=== PATIENT | male | born 1945 | race Caucasian/White ===

== ENCOUNTER 2021-01-26 10:17 | Inpatient (IN) | payer OTHER ==
[~2021-01-26] VITALS: Ht 167.6 cm; Wt 59.1 kg
[~2021-01-26 10:17] MED LIST: ALDACTONE 25MG25 M1 PO; ASPIRIN 81M81 MG/TA2 PO; COZAAR 25MG25 MG/TAB PO; DOXYCYCLINE HY100 MG PO; LANOX0.0625 PO; NEURONTIN300 MG/CAP PO; PRAVACHOL10 MG PO; PREDNISONE20 MG PO; PROAIR HFA0.09 MG/AC IH; TOPROL XL 25MG25 MG PO
[2021-01-26 11:09] LABS: BASO # 0.1 (0.0-0.2); BASO % 1.3 % (0.0-2.0); EOS # 0.5 (0.0-0.7); EOS % 7.9 % (0-4.0); GRAN # 3.9 (1.4-6.5); GRAN % 66.4 % (42.2-75.2); HEMATOCRIT 40.5 % (42.0-52.0); HEMOGLOBIN 12.8 g/dl (13.5-18.0); LYMPH # 0.8 (1.2-3.4); LYMPH % 13.8 % (20.0-51.0); MEAN CELL VOLUME 95 fl (80.0-100.0); MEAN CORPUSCULAR HEMOGLOBIN 30 pg (27.0-31.0); MEAN CORPUSCULAR HGB CONC 32 g/dl (33.0-37.0); MONO # 0.6 (0.1-0.6); MONO % 10.4 % (1.7-9.3); PLATELET COUNT 185 K/mm3 (130-400); RED BLOOD COUNT 4.27 M/mm3 (4.20-5.60); REDCELL DISTRIBUTION WIDTH-CV 12.9 % (11.5-14.5)
[2021-01-26 11:19] LABS: CALCIUM 8.6 mg/dL (8.4-10.2); CREATININE, serum 0.88 (0.66-1.25)
[2021-01-26 11:34] LABS: TROPONIN-I 0.04 ng/mL (0.000-0.035)
[2021-01-26 17:49] VITALS: BP 106/75; PULSE 84; TEMP 97.9
--- NOTE | 2021-01-26 19:12 | NUR ---
Pt admitted to floor from ER this afternoon, initial assessments completed.
[2021-01-26 19:51] VITALS: BP 92/55; PULSE 99; TEMP 97.4
--- NOTE | 2021-01-26 20:00 | NUR ---
Patient assessed at this time. Alert and oriented x 4, and able to make needs known. Denies having pain and discomfort at this time. Peripheral INT to right AC. Denies having SOB and dyspnea at this time. LS CTA in upper lobes, diminished in lower. Respirations even and unlabored. HRR. Telemetry in place. Capillary refill less than 3 seconds. Non-tenting skin turgor. BSAx4. Abdomen soft and non-tender. No edema. Voices no questions, needs, or concerns at this time. Resting in bed with call light within reach.
[2021-01-27 00:18] VITALS: BP 104/63; PULSE 100; TEMP 97.6
[2021-01-27 04:53] VITALS: BP 112/73; PULSE 62; TEMP 97.4
--- NOTE | 2021-01-27 05:36 | NUR ---
Patient has denied having pain and discomfort this shift. Has been resting in bed, and independent in room. Stated that IV steroids have helped, and he is feeling much better. Denies SOB and dyspnea. Resting in bed with call light within reach. Encouraged to call with any questions, needs, or concerns, and voiced understanding.
[2021-01-27 06:25] LABS: HEMATOCRIT 37.1 % (42.0-52.0); HEMOGLOBIN 12.2 g/dl (13.5-18.0); MEAN CELL VOLUME 95 fl (80.0-100.0); MEAN CORPUSCULAR HEMOGLOBIN 31 pg (27.0-31.0); MEAN CORPUSCULAR HGB CONC 33 g/dl (33.0-37.0); MEAN PLATELET VOLUME 10.1 fl (7.4-10.4); PLATELET COUNT 186 K/mm3 (130-400); RED BLOOD COUNT 3.91 M/mm3 (4.20-5.60)
[2021-01-27 06:38] LABS: CALCIUM 8.6 mg/dL (8.4-10.2); CREATININE, serum 0.87 (0.66-1.25)
[2021-01-27 07:30] LABS: BAND 2 % (0-10); LYMPHOCYTE 10 % (20.0-51.0); NEUTROPHILS 88 % (42.0-75.2); OVALOCYTES 1+; PLATELET ESTIMATE NORMAL (NORMAL)
[2021-01-27 07:31] LABS: TEAR DROP CELLS 1+
[2021-01-27 08:23] VITALS: BP 99/42; PULSE 52; TEMP 97.4
--- NOTE | 2021-01-27 09:00 | NUR ---
Pt awake and alert upon entry, no C/O pain or SOA. Shift assessment complete, left Pt call light in reach, bed in lowest position.
[2021-01-27] MEDS ORDERED: PREDNISONE20 MG PO (10:44)
[2021-01-27] MEDS ORDERED: RT ADVAIR 228 DISKUS IH (10:46)
[2021-01-27 11:28] VITALS: BP 94/57; PULSE 93; TEMP 97.4
--- NOTE | 2021-01-27 12:00 | NUR ---
SW met with patient to complete intake. Patient provides that he lives at home with his Tenisha [phone]. He also states that another POC is his son Edward in [place] [phone]. Patient provides that he does not utilize any DME at this time and is independent with ADL's. Patient provides that his PCP is Dr. Mckee, pharmacy is [facility], and is able to afford his medications. Maryt states that his is his DPOA-HC and that this document can be sent or brought up to the facility. Patient provides that his plan is to go home today or tomorrow if the DR says he is able to. Patient stats he has no concerns with doing so. SW will continue to follow.
--- NOTE | 2021-01-27 12:00 | NUR ---
Pt discharged to home, discussed discharge information with Pt. Escorted Pt to entrance, Pt left in own transportation.
[2021-01-28] MEDS ORDERED: PRILOSEC 20MG20 MG PO (09:39)
[2021-02-27] MEDS ORDERED: LASIX 20MG TABL20 MG PO (14:45)
[2021-02-28] MEDS ORDERED: PREDNISONE10 MG PO (10:55)
[2021-02-28] MEDS ORDERED: DOXYCYCLINE 10100 MG PO (12:36)
[2021-02-28] MEDS ORDERED: RT SPIRIVA18 MCG IH (12:38)
[2021-07-01] MEDS ORDERED: CORDARONE200 MG/TAB PO (04:12)
[2021-07-07] MEDS ORDERED: LASIX 40MG TABL40 MG PO (10:34)
== END 2021-01-27 12:00 | disposition home or self-care (01) | DRG 191 ==
LOC: COL.ER 10:17 → MEDICAL 13:44 → COL.ER 13:44 → MEDICAL 13:44
PROVIDERS: Nurse Practitioner Family; ADMIT Student in an Organized Health Care Education/Training Program
DX: J44.1 Chronic obstructive pulmonary disease with (acute) exacerbation (principal); I24.8 Other forms of acute ischemic heart disease; G89.29 Other chronic pain; M54.9 Dorsalgia, unspecified; I48.91 Unspecified atrial fibrillation; Z85.118 Personal history of other malignant neoplasm of bronchus and lung; Z86.73 Personal history of transient ischemic attack (TIA), and cerebral infarction without residual deficits; Z79.82 Long term (current) use of aspirin; Z87.891 Personal history of nicotine dependence; Z92.21 Personal history of antineoplastic chemotherapy; Z95.0 Presence of cardiac pacemaker; Z85.828 Personal history of other malignant neoplasm of skin
CPT/HCPCS: 99222-AI; 99239; J1650; J2920; J2930

== ENCOUNTER 2021-01-28 06:12 | Emergency (ER) | payer OTHER ==
[~2021-01-28] VITALS: Ht 167.6 cm; Wt 59.1 kg
[~2021-01-28 06:12] MED LIST changes: +RT ADVAIR 228 DISKUS IH
[2021-01-28 06:42] LABS: BASO % 0.1 % (0.0-2.0); EOS % 0.1 % (0-4.0); GRAN # 14.5 (1.4-6.5); GRAN % 89.3 % (42.2-75.2); HEMATOCRIT 37.9 % (42.0-52.0); HEMOGLOBIN 12.5 g/dl (13.5-18.0); LYMPH # 0.7 (1.2-3.4); LYMPH % 4.3 % (20.0-51.0); MEAN CELL VOLUME 94 fl (80.0-100.0); MEAN CORPUSCULAR HEMOGLOBIN 31 pg (27.0-31.0); MEAN CORPUSCULAR HGB CONC 33 g/dl (33.0-37.0); MEAN PLATELET VOLUME 10.3 fl (7.4-10.4); MONO # 0.9 (0.1-0.6); MONO % 5.8 % (1.7-9.3); PLATELET COUNT 208 K/mm3 (130-400); RED BLOOD COUNT 4.03 M/mm3 (4.20-5.60); REDCELL DISTRIBUTION WIDTH-CV 13.2 % (11.5-14.5)
[2021-01-28 06:49] LABS: PROTHROMBIN TIME 11.6 SECONDS (9.7-12.8)
[2021-01-28 06:57] LABS: ALBUMIN 3.9 gm/dL (3.5-5.0); BILIRUBIN,TOTAL 0.2 mg/dL (0.0-1.0); CALCIUM 8.9 mg/dL (8.4-10.2); CREATININE, serum 1.14 (0.66-1.25); POTASSIUM 4.7 mmol/L (3.4-5.0); TOTAL PROTEIN 6.7 gm/dL (6.4-8.2)
[2021-01-28 07:15] LABS: COLLECTION METHOD CLEAN CATCH
[2021-01-28 07:18] LABS: TROPONIN-I 0.037 ng/mL (0.000-0.035)
[2021-01-28 07:25] LABS: PH 6 (5-8); SQUAMOUS EPITHELIAL None Seen /hpf; URINE APPEARANCE Clear; URINE BACTERIA None Seen /hpf; URINE BILIRUBIN Negative (NEGATIVE); URINE BLOOD 2+ (NEGATIVE); URINE COLOR Yellow; URINE GLUCOSE Negative (NEGATIVE); URINE KETONE Negative (NEGATIVE); URINE LEUKOCYTE ESTERASE Negative (NEGATIVE); URINE NITRATE Negative (NEGATIVE); URINE PROTEIN(semi-quant) Negative (NEGATIVE)
[2021-01-28] MEDS ORDERED: PRILOSEC 20MG20 MG PO (09:39)
[2021-01-28 10:02] VITALS: BP 103/58; PULSE 82; TEMP 97.6
[2021-02-27] MEDS ORDERED: LASIX 20MG TABL20 MG PO (14:45)
[2021-02-28] MEDS ORDERED: PREDNISONE10 MG PO (10:55)
[2021-02-28] MEDS ORDERED: DOXYCYCLINE 10100 MG PO (12:36)
[2021-02-28] MEDS ORDERED: RT SPIRIVA18 MCG IH (12:38)
[2021-07-01] MEDS ORDERED: CORDARONE200 MG/TAB PO (04:12)
[2021-07-07] MEDS ORDERED: LASIX 40MG TABL40 MG PO (10:34)
== END 2021-01-28 10:13 | disposition home or self-care (01) ==
LOC: COL.ER 06:12
PROVIDERS: Emergency Medicine
DX: R07.2 Precordial pain (principal); I48.91 Unspecified atrial fibrillation; J44.9 Chronic obstructive pulmonary disease, unspecified; I10 Essential (primary) hypertension; E78.5 Hyperlipidemia, unspecified; G89.29 Other chronic pain; M54.5 Low back pain; Z95.0 Presence of cardiac pacemaker; Z86.73 Personal history of transient ischemic attack (TIA), and cerebral infarction without residual deficits; Z85.118 Personal history of other malignant neoplasm of bronchus and lung; Z79.52 Long term (current) use of systemic steroids; Z79.82 Long term (current) use of aspirin
CPT/HCPCS: J1940

== ENCOUNTER 2021-06-04 20:40 | Emergency (ER) | payer OTHER ==
[~2021-06-04] VITALS: Ht 167.6 cm; Wt 57.3 kg
[~2021-06-04 20:40] MED LIST changes: +DOXYCYCLINE 10100 MG PO; +LASIX 20MG TABL20 MG PO; +PREDNISONE10 MG PO; +PRILOSEC 20MG20 MG PO; +RT SPIRIVA18 MCG IH
[2021-06-04 22:15] VITALS: BP 103/77; PULSE 84; TEMP 98.1
[2021-07-01] MEDS ORDERED: CORDARONE200 MG/TAB PO (04:12)
[2021-07-07] MEDS ORDERED: LASIX 40MG TABL40 MG PO (10:34)
== END 2021-06-04 22:15 | disposition home or self-care (01) ==
LOC: COL.ER 20:40
DX: S46.211A Strain of muscle, fascia and tendon of other parts of biceps, right arm, initial encounter (principal); J44.9 Chronic obstructive pulmonary disease, unspecified; Z79.899 Other long term (current) drug therapy; Z79.52 Long term (current) use of systemic steroids; X50.9XXA Other and unspecified overexertion or strenuous movements or postures, initial encounter; Y93.54 Activity, bowling

== ENCOUNTER 2021-06-11 07:57 | Inpatient (IN) | payer OTHER ==
[~2021-06-11] VITALS: Ht 167.6 cm; Wt 67.3 kg
[2021-06-11 08:35] LABS: BASO # 0.1 (0.0-0.2); BASO % 0.9 % (0.0-2.0); EOS # 0.5 (0.0-0.7); GRAN # 6.7 (1.4-6.5); HEMATOCRIT 38.9 % (42.0-52.0); HEMOGLOBIN 12.4 g/dl (13.5-18.0); LYMPH # 1.1 (1.2-3.4); LYMPH % 11.8 % (20.0-51.0); MEAN CELL VOLUME 94 fl (80.0-100.0); MEAN CORPUSCULAR HEMOGLOBIN 30 pg (27.0-31.0); MEAN CORPUSCULAR HGB CONC 32 g/dl (33.0-37.0); MEAN PLATELET VOLUME 9.5 fl (7.4-10.4); MONO # 0.7 (0.1-0.6); MONO % 8.1 % (1.7-9.3); PLATELET COUNT 245 K/mm3 (130-400); RED BLOOD COUNT 4.13 M/mm3 (4.20-5.60); REDCELL DISTRIBUTION WIDTH-CV 13.4 % (11.5-14.5)
[2021-06-11 09:03] LABS: ALBUMIN 3.3 gm/dL (3.4-4.8); BILIRUBIN,TOTAL 0.7 mg/dL (0.2-1.2); CALCIUM 8.7 mg/dL (8.4-10.2); CREATININE, serum 0.86 mg/dL (0.72-1.25); POTASSIUM 4.3 mmol/L (3.5-4.5)
[2021-06-11 09:13] LABS: TROPONIN-I 0.083 ng/mL (0.00-0.033)
[2021-06-11 10:33] LABS: COLLECTION METHOD CLEAN CATCH
[2021-06-11 10:46] LABS: MUCOUS Present /lpf; PH 7 (5-8); SQUAMOUS EPITHELIAL None Seen /hpf; URINE APPEARANCE Clear; URINE BACTERIA None Seen /hpf; URINE BILIRUBIN Negative (NEGATIVE); URINE BLOOD 2+ (NEGATIVE); URINE COLOR Yellow; URINE GLUCOSE Negative (NEGATIVE); URINE KETONE Trace (NEGATIVE); URINE LEUKOCYTE ESTERASE Negative (NEGATIVE); URINE NITRATE Negative (NEGATIVE); URINE PROTEIN(semi-quant) Negative (NEGATIVE)
[2021-06-11 15:32] VITALS: BP 104/71; PULSE 85; TEMP 97.6
[2021-06-11 16:00] LABS: PARTIAL THROMBOPLASTIN TIME 27.4 SECONDS (26.0-37.0)
--- NOTE | 2021-06-11 16:11 | NUR ---
Patient arrived to the floor from ED. Currently has no complaints. Heparin drip was initiated per orders/protocol.
[2021-06-11 16:36] VITALS: BP 109/68; PULSE 89; TEMP 98.1
[2021-06-11 20:19] VITALS: BP 103/70; PULSE 82; TEMP 97.4
--- NOTE | 2021-06-11 20:30 | NUR ---
Initial shift assessment done- Denies pain, denies chest pain, denies SOB, has o2 at 2L/nc, Tele on- paced, heparing drip at 800u/hr {8cc/hr} , next hepxa at 2200. NPo after MN for heart cath in AM. Up as tolerated in room, steady on feet.
--- NOTE | 2021-06-11 23:00 | NUR ---
Hepxa at 0.45,, Heparin drip decreased to 700unit/hr {7cc/hr} per protocol,, next hepxa at 0500.
[2021-06-12] VITALS (14 sets, daily range): BP systolic 89–97; BP diastolic 47–69; PULSE 74–92; TEMP 97.3–98.5
--- NOTE | 2021-06-12 06:02 | NUR ---
Quiet night, heparin drip at 7cc/hr, lab here to draw morning labs and hepxa. Patient has been NPO since MO for 0900 heart cath.tele on. No chest pain
--- NOTE | 2021-06-12 07:00 | NUR ---
Report received from MAYUR Blank. PT in bed resitng, denies needs, anticipating heart cath at 0900. Will continue to monitor.
[2021-06-12 07:08] LABS: HEMATOCRIT 37.3 % (42.0-52.0); HEMOGLOBIN 12.3 g/dl (13.5-18.0); MEAN CELL VOLUME 93 fl (80.0-100.0); MEAN CORPUSCULAR HEMOGLOBIN 31 pg (27.0-31.0); MEAN CORPUSCULAR HGB CONC 33 g/dl (33.0-37.0); MEAN PLATELET VOLUME 10.1 fl (7.4-10.4); PLATELET COUNT 268 K/mm3 (130-400); RED BLOOD COUNT 4.02 M/mm3 (4.20-5.60); REDCELL DISTRIBUTION WIDTH-CV 13.2 % (11.5-14.5)
[2021-06-12 07:17] LABS: INR 1.3 (0.8-3.0)
[2021-06-12 07:20] LABS: PARTIAL THROMBOPLASTIN TIME 47.4 SECONDS (26.0-37.0)
[2021-06-12 07:30] LABS: CALCIUM 8.5 mg/dL (8.4-10.2); CREATININE, serum 0.77 mg/dL (0.72-1.25); POTASSIUM 4.1 mmol/L (3.5-4.5)
--- NOTE | 2021-06-12 08:25 | NUR ---
Assessment charted. Student nurse notified me of low BP. Called April and received orders for bolus, provided. In room they completed echo with contrast. Resting in bed, alert and oriented but not sure of date, otherwise cooperative. No skin issues. IVF to RFA. Denies pain. WIll continue to monitor.
--- NOTE | 2021-06-12 09:25 | NUR ---
Initial visit; Patient thanked Concrete Pointer for looking in on him and offering God's blessings and keeping him in her prayers ans he is having a surgical procedure today.
--- NOTE | 2021-06-12 11:45 | NUR ---
Report received from Davey in floating labor gang supervisor, pt arrived back to floor at this time, awake and alert, provided coffee, water and ordered lunch. Pt resting in bed, denies needs, RW access site is CDI with band in place. Will continue to monitor.
--- NOTE | 2021-06-12 14:21 | NUR ---
Cargo Trimmer met with patient to discuss discharge planning. Patient lives in [place] with his , Tenisha (ph#[phone]) and goes to the [facility] for primary care and medications. Patient's primary care physician is Dr. Maldonado. Patient has oxygen at home that he uses as needed and uses no other DME. Patient reports independence with ADLS and plans to return home upon discharge. Patient advised he does not have Advance Directives at this time and was not interested in completing DPOA-HC at this time. Discharge Plan: Home
--- NOTE | 2021-06-12 18:22 | NUR ---
Pt doing well, resting in bed, taking PO well. BPs remain soft, denies needs, will give report to ericka atwood who will resume care.
--- NOTE | 2021-06-12 22:28 | NUR ---
INCREASED HEPARIN GTT BY 150 U/HR PER PROTOCOL AT 2150.
--- NOTE | 2021-06-12 22:56 | NUR ---
PT ALERT AND ORIENTED IN ROOM. PT ABLE TO AMBULATE INDEPENDENTLY. PT RIGHT RADIAL SITE SOFT, NO HEMATOMA NOTED. PULSES 2+ IN ALL EXTREMITIES. PT EXPRESSES PAIN INBETWEEN SHOULDER BLADES 2-3/10. STATES PAIN HAS BEEN THERE PRIOR TO COMING TO HOSPITAL. PT CAP REFILL <3S. PT BLOOD PRESSURES SOFT, PT REPORTS NEAR BASELINE. PT CALL LIGHT WITHIN REACH, NO OTHER NEEDS EXPRESSED AT THIS TIME.
--- NOTE | 2021-06-12 23:20 | NUR ---
NOTIFIED ACE LUO OF PT REPORTING PAIN INBETWEEN SHOULDERS AND BACK DURING 1999 PAIN ASSESSMENT THAT HAS SINCE RESOLVED. PT VITAL SIGNS REMAINED AT BASELINE, NO SIGNS OF ACUTE DISTRESS NOTED. PT STATES, "IT MIGHT HAVE BEEN INDIGESTION FROM DINNER, I PUT A LOT OF SPICE ON IT." RECEIVED INSTRUCTION TO CONTINUE TO MONITOR, NO INTERVENTION AT THIS TIME.
[2021-06-13] VITALS (11 sets, daily range): BP systolic 92–117; BP diastolic 39–87; PULSE 70–96; TEMP 97.3–98.3
[2021-06-13 04:07] LABS: BASO % 0.1 % (0.0-2.0); GRAN # 10.1 K/mm3 (1.4-6.5); GRAN % 89.7 % (42.2-75.2); HEMOGLOBIN 11.7 g/dl (13.5-18.0); LYMPH # 0.6 K/mm3 (1.2-3.4); LYMPH % 5.3 % (20.0-51.0); MEAN CELL VOLUME 92 fl (80.0-100.0); MEAN CORPUSCULAR HEMOGLOBIN 30 pg (27.0-31.0); MEAN CORPUSCULAR HGB CONC 33 g/dl (33.0-37.0); MEAN PLATELET VOLUME 9.9 fl (7.4-10.4); MONO # 0.5 K/mm3 (0.1-0.6); MONO % 4.5 % (1.7-9.3); PLATELET COUNT 254 K/mm3 (130-400); RED BLOOD COUNT 3.91 M/mm3 (4.20-5.60); REDCELL DISTRIBUTION WIDTH-CV 13.6 % (11.5-14.5)
[2021-06-13 04:17] LABS: HEMATOCRIT 35.8 % (42.0-52.0)
[2021-06-13 04:31] LABS: CALCIUM 8.4 mg/dL (8.4-10.2); CREATININE, serum 1.03 mg/dL (0.72-1.25); POTASSIUM 4.3 mmol/L (3.5-4.5)
--- NOTE | 2021-06-13 05:00 | NUR ---
PT CONTINUING ON PLAN OF CARE. PT RADIAL SITE CONTINUES TO BE CLEAN, DRY, INTACT. NO HEMATOMA NOTED. PULSES 2+ IN ALL EXTREMITIES. PT DENIED PAIN AT 0400 VITAL SIGN COLLECTION. PT BLOOD PRESSURE REMAINED SOFT THIS SHIFT. PT ABLE TO AMBULATE INDEPENDENTLY IN ROOM. HEPARIN GTT MANAGED PER PROTOCOL. PT FREE FROM INJURY THIS SHIFT.
--- NOTE | 2021-06-13 07:31 | NUR ---
Patient resting in bed upon entry to room. Heparin gtt running as ordered. Patient denies any pain, discomfort, SOA, or needs at this time. Call light in reach. Student will be assissting in cares this shift.
--- NOTE | 2021-06-13 08:06 | NUR ---
Shift assessment preformed. Student to give medications under supervision of liscensed nurse. Inspiratory and Expiratory wheezes in lung dumas. +1 Edema in BLE. Radial heart cath site is soft, no hematoma present, bandaide in place. Patient denies any pain, discomfort, SOA, or further needs at this time. Call light in reach. VSS. Patient A&O. Hepxa will be drawn at 1030.
--- NOTE | 2021-06-13 12:32 | NUR ---
pack worker supervisor met with the patient post rounds. Patient is currently paying for home O2 privately, but unsure of the company he uses. Patient will complete a exercise oximetry test before dc to determine O2 needs. Informed the patient that if he should need home O2, we will set it [facility] through the [facility].
--- NOTE | 2021-06-13 14:32 | NUR ---
Primary nurse was assisted with [phone] patient care by [employer] student Helga Hansen and [employer] instructor Roberta Jorgensen MSN, RN
--- NOTE | 2021-06-13 19:43 | NUR ---
Patient has had an ok day. Heparin gtt DC'd as ordered. New IV site started on patient's left forearm. Patient still has SOA upon exertion, but is currently not requiring any O2. Patient denies any pain, discomfort, or further needs at this time. Call light in reach.
--- NOTE | 2021-06-13 22:20 | NUR ---
PT RESTING IN BED. EVENING MEDICATIONS GIVEN. SHIFT ASSESSMENT COMPLETED. DENIES ANY PAIN OR ANY NEEDS. R RADIAL CATHETERIZATION SITE HAS NO SWELLING OR BLEEDING, DRESSING IS C/D/I. WILL CONTINUE TO MONITOR.
--- NOTE | 2021-06-14 03:01 | NUR ---
TELEMETRY CALLED AND INFORMED THIS RN THAT PT HAD JUST HAD A SEVEN BEAT RUN OF V-TACH AT THIS TIME. CHECKED ON PT AND HE AROUSED FROM SLEEP EASILY AND SEEMS STABLE. VITAL SIGNS STABLE. WILL CONTINUE TO MONITOR.
[2021-06-14 03:03] VITALS: BP 94/66; PULSE 73; TEMP 97.3
[2021-06-14 03:29] LABS: BASO % 0.1 % (0.0-2.0); GRAN # 7.5 K/mm3 (1.4-6.5); GRAN % 83.3 % (42.2-75.2); HEMOGLOBIN 11.9 g/dl (13.5-18.0); LYMPH # 0.9 K/mm3 (1.2-3.4); LYMPH % 10.5 % (20.0-51.0); MEAN CELL VOLUME 93 fl (80.0-100.0); MEAN CORPUSCULAR HEMOGLOBIN 30 pg (27.0-31.0); MEAN CORPUSCULAR HGB CONC 33 g/dl (33.0-37.0); MEAN PLATELET VOLUME 9.8 fl (7.4-10.4); MONO # 0.5 K/mm3 (0.1-0.6); MONO % 5.7 % (1.7-9.3); PLATELET COUNT 230 K/mm3 (130-400); RED BLOOD COUNT 3.93 M/mm3 (4.20-5.60); REDCELL DISTRIBUTION WIDTH-CV 13.4 % (11.5-14.5)
[2021-06-14 03:31] LABS: HEMATOCRIT 36.4 % (42.0-52.0)
[2021-06-14 04:03] LABS: CALCIUM 8.3 mg/dL (8.4-10.2); CREATININE, serum 0.96 mg/dL (0.72-1.25); MAGNESIUM 2.3 mg/dL (1.6-2.6); POTASSIUM 4.1 mmol/L (3.5-4.5)
--- NOTE | 2021-06-14 05:49 | NUR ---
PT RESTING IN BED THIS MORNING. DENIES ANY NEEDS. CONTINUING TO MONITOR.
[2021-06-14 07:02] VITALS: BP 92/67; PULSE 77; TEMP 97.5
--- NOTE | 2021-06-14 08:23 | NUR ---
SPO2 @ REST 93% WALKED ON ROOM AIR APPROX 200 FT AND BACK TO ROOM SPO2 86% PT FELT WINDED. RT TX GIVEN WITH PT FEELING BETTERL PT HAS [place]AND AT HOME AND USES IT PRN. DENISE EXERCISE VERY WELL W/O COMPLAINT. LEFT ON RA POST RT TX.
[2021-06-14 11:34] VITALS: BP 101/63; PULSE 82; TEMP 97.5
--- NOTE | 2021-06-14 14:47 | NUR ---
Primary nurse was assisted with [phone] patient care by [employer] student Helga Hansen and [employer] instructor Roberta Jorgensen MSN, RN
[2021-06-14 15:31] VITALS: BP 94/62; PULSE 77; TEMP 97.6
--- NOTE | 2021-06-14 15:56 | NUR ---
Transport Driver faxed clinical information and exercise oximetry to Dr. Maldonado's office at the [facility]. Per exercise oximetry, patient needs two liters only with ambulation. CHRISTOPHER spoke with RN at Dr. Maldonado's office who advised that per their policies and after review of patient's referral, he would not qualify to have VA cover his oxygen. RN reviewed previous visit notes and advised this has been discussed with patient previously. Patient only has Medicare PT A, which will not cover any DME needs. CHRISTOPHER met with patient to provide this update. Patient states he will continue to use his portable concentrator that he paid privately for. CHRISTOPHER updated Hospitalist on the above information. Discharge Plan: Home with private pay oxygen
--- NOTE | 2021-06-14 20:27 | NUR ---
PT RESTING IN BED. EVENING MEDICATIONS GIVEN. SHIFT ASSESSMENT COMPLETED. PT DENIES ANY NEEDS AT THIS TIME. WILL CONTINUE TO MONITOR.
[2021-06-14 20:29] VITALS: BP 103/65; PULSE 76; TEMP 97.5
[2021-06-15 01:05] VITALS: BP 102/64; PULSE 71; TEMP 97.7
--- NOTE | 2021-06-15 01:41 | NUR ---
TELEMETRY CALLED TO INFORM THIS RN THAT PT HAD A 5 BEAT RUN OF V-TACH AT THIS TIME. PT SLEEPING AND AROUSES EASILY. ACE LUO CALLED. WILL CONTINUE TO MONITOR.
[2021-06-15 05:28] VITALS: BP 96/66; PULSE 72; TEMP 97.4
--- NOTE | 2021-06-15 05:57 | NUR ---
PT HAD UNEVENTFUL NIGHT. STATES HES EAGER TO GO HOME. DENIES ANY NEEDS.
--- NOTE | 2021-06-15 07:00 | NUR ---
Report with MAYUR Mathew. Pt sitting up in bed, awake and alert, expressing his wish to discharge home today. No further needs reported. Call light in reach.
[2021-06-15 07:07] LABS: EOS % 0.5 % (0-4.0); GRAN # 6.2 K/mm3 (1.4-6.5); GRAN % 77.8 % (42.2-75.2); HEMATOCRIT 41.6 % (42.0-52.0); HEMOGLOBIN 13.1 g/dl (13.5-18.0); LYMPH # 1.1 K/mm3 (1.2-3.4); LYMPH % 13.8 % (20.0-51.0); MEAN CELL VOLUME 95 fl (80.0-100.0); MEAN CORPUSCULAR HEMOGLOBIN 30 pg (27.0-31.0); MEAN CORPUSCULAR HGB CONC 32 g/dl (33.0-37.0); MEAN PLATELET VOLUME 9.8 fl (7.4-10.4); MONO # 0.6 K/mm3 (0.1-0.6); MONO % 7.5 % (1.7-9.3); PLATELET COUNT 247 K/mm3 (130-400); RED BLOOD COUNT 4.36 M/mm3 (4.20-5.60); REDCELL DISTRIBUTION WIDTH-CV 13.4 % (11.5-14.5)
--- NOTE | 2021-06-15 07:09 | NUR ---
NOTIFIED DR. CANTU OF 5 BEAT RUN OF V-TACH AT 0130, PER INSTRUCTIONS FROM ACE LUO.
--- NOTE | 2021-06-15 07:29 | NUR ---
Assessment complete. Pt sitting up in bed, A&O x 4, denies pain at this time. Saline lock IV to left forearm without s/s of complications. Physical assessment otherwise unremarkable. No further needs reported. Call light in reach.
[2021-06-15 07:37] LABS: CALCIUM 9.1 mg/dL (8.4-10.2); CREATININE, serum 1.1 mg/dL (0.72-1.25); POTASSIUM 4.3 mmol/L (3.5-4.5)
[2021-06-15 07:38] VITALS: BP 107/66; PULSE 74; TEMP 98.9
[2021-06-15] MEDS ORDERED: LASIX 20MG TABL20 MG PO (09:31)
[2021-06-15] MEDS ORDERED: TOPROL XL 25MG25 MG PO ×2 (09:31)
[2021-06-15] MEDS ORDERED: CORDARONE200 MG/TAB PO (09:31)
[2021-06-15] MEDS ORDERED: PREDNISONE20 MG PO (09:35)
--- NOTE | 2021-06-15 12:38 | NUR ---
Discharge instructions reviewed with pt regarding new medications and follow-up appointments. Questions invited and answered. Pt verbalizes understanding, discharged home, escorted out of facility via WC accompanied by WEBLOGIC DEVELOPER and pt's friend.
[2021-07-01] MEDS ORDERED: CORDARONE200 MG/TAB PO (04:12)
[2021-07-07] MEDS ORDERED: LASIX 40MG TABL40 MG PO (10:34)
== END 2021-06-15 12:50 | disposition home or self-care (01) | DRG 286 ==
LOC: COL.ER 07:57 → MEDICAL 13:19
PROVIDERS: Emergency Medicine; Nurse Practitioner Family; Physician Assistant; ADMIT Student in an Organized Health Care Education/Training Program
PROC: 4A023N7 Measurement of Cardiac Sampling and Pressure, Left Heart, Percutaneous Approach (ICD-10-PCS; principal; 2021-06-11)
PROC: B2111ZZ Fluoroscopy of Multiple Coronary Arteries using Low Osmolar Contrast (ICD-10-PCS; 2021-06-11)
DX: I11.0 Hypertensive heart disease with heart failure (principal); J96.21 Acute and chronic respiratory failure with hypoxia; I50.21 Acute systolic (congestive) heart failure; J44.1 Chronic obstructive pulmonary disease with (acute) exacerbation; I24.8 Other forms of acute ischemic heart disease; E44.0 Moderate protein-calorie malnutrition; I42.8 Other cardiomyopathies; I48.91 Unspecified atrial fibrillation; Z86.73 Personal history of transient ischemic attack (TIA), and cerebral infarction without residual deficits; G89.29 Other chronic pain; M54.9 Dorsalgia, unspecified; Z98.49 Cataract extraction status, unspecified eye; Z95.0 Presence of cardiac pacemaker; Z79.82 Long term (current) use of aspirin; Z87.891 Personal history of nicotine dependence; E78.5 Hyperlipidemia, unspecified; I95.9 Hypotension, unspecified; Z85.118 Personal history of other malignant neoplasm of bronchus and lung; Z68.20 Body mass index [BMI] 20.0-20.9, adult; Z20.822 Contact with and (suspected) exposure to COVID-19; Z90.2 Acquired absence of lung [part of]; Z92.3 Personal history of irradiation
CPT/HCPCS: 99223-AI; 99232-AI; 99233-AI; 99239; C8924; J0696; J1644; J2920; J3010; J7050; J7512; Q9957; Q9967

== ENCOUNTER → 2021-07-01 | Outpatient (CLI) | payer OTHER ==
[~2021-07-01] MED LIST changes: +ANTI-DIARRHEAL2 MG PO; +ATIVAN 1MG T1 MG/TAB PO; +ATROPINE SULFATE S1% SL; +CORDARONE200 MG/TAB PO; +LASIX 40MG TABL40 MG PO; +MELATIN 3 MG-11 TAB PO; +REFRESH TEARS 330 ML OP; +ROXANOL 20MG20 MG/ML PO; +SYNTHROID0.05 MG/TA PO; +TYLENOL 325MG325 MG PO; +ZOFRAN ODT4 MG PO
== END ==
LOC: ZCOL.LAB 01:37
DX: J47.9 Bronchiectasis, uncomplicated (principal)

== ENCOUNTER 2021-07-22 16:00 | Inpatient (IN) | payer OTHER, MEDICARE ==
[~2021-07-22] VITALS: Ht 15.2 cm; Wt 51.0 kg
[~2021-07-22 16:00] MED LIST changes: -ANTI-DIARRHEAL2 MG PO; -ATIVAN 1MG T1 MG/TAB PO; -ATROPINE SULFATE S1% SL; -MELATIN 3 MG-11 TAB PO; -REFRESH TEARS 330 ML OP; -ROXANOL 20MG20 MG/ML PO; -SYNTHROID0.05 MG/TA PO; -TYLENOL 325MG325 MG PO; -ZOFRAN ODT4 MG PO
[2021-07-22 16:30] LABS: HEMOGLOBIN 11.2 g/dl (13.5-18.0); MEAN CELL VOLUME 91 fl (80.0-100.0); MEAN CORPUSCULAR HEMOGLOBIN 30 pg (27.0-31.0); MEAN CORPUSCULAR HGB CONC 33 g/dl (33.0-37.0); MEAN PLATELET VOLUME 8.9 fl (7.4-10.4); PLATELET COUNT 179 K/mm3 (130-400); RED BLOOD COUNT 3.77 M/mm3 (4.20-5.60); REDCELL DISTRIBUTION WIDTH-CV 13.9 % (11.5-14.5)
[2021-07-22 16:32] LABS: HEMATOCRIT 34.2 % (42.0-52.0)
[2021-07-22 16:51] LABS: CREATININE, serum 1.26 mg/dL (0.72-1.25); POTASSIUM 4.5 mmol/L (3.5-4.5); TOTAL PROTEIN 6.3 gm/dL (6.2-8.1)
[2021-07-22 17:02] LABS: LYMPHOCYTE 1 % (20.0-51.0); NEUTROPHILS 98 % (42.0-75.2)
[2021-07-22 17:03] LABS: PLATELET ESTIMATE NORMAL (NORMAL)
[2021-07-22 17:04] LABS: HYPOCHROMIA 1+; SCHISTOCYTES 1+
[2021-07-22 20:04] VITALS: BP 97/60; PULSE 86; TEMP 97.9
--- NOTE | 2021-07-22 20:30 | NUR ---
Patient to medical room 356 at this time. He is alert and oriented with no c/o pain. He wears 3 liters O2 with no signs of SOA. Assessments complete. Call light in reach and fluids infusing. Will continue to monitor.
[2021-07-23] VITALS (8 sets, daily range): BP systolic 83–111; BP diastolic 47–59; PULSE 38–74; TEMP 97.3–97.8
--- NOTE | 2021-07-23 05:39 | NUR ---
Pt's BP 88/46 and HR 40 bpm at this time. Hospitalist Devorah Chun notified; cardiology consult and pacemaker interrogation order obtained. Patient is asymptomatic; no chest pain, no dizziness. He did request a breathing treatment which has just finished infusing. Patient still on 3 liters O2 and shows no signs of increased work of breathing; audible wheezing is present without stethoscope.
[2021-07-23 07:10] LABS: HEMOGLOBIN 10.4 g/dl (13.5-18.0); MEAN CELL VOLUME 92 fl (80.0-100.0); MEAN CORPUSCULAR HEMOGLOBIN 30 pg (27.0-31.0); MEAN CORPUSCULAR HGB CONC 32 g/dl (33.0-37.0); MEAN PLATELET VOLUME 9.6 fl (7.4-10.4); PLATELET COUNT 163 K/mm3 (130-400); RED BLOOD COUNT 3.49 M/mm3 (4.20-5.60)
[2021-07-23 07:13] LABS: HEMATOCRIT 32.1 % (42.0-52.0)
[2021-07-23 07:29] LABS: CALCIUM 8.7 mg/dL (8.4-10.2); CREATININE, serum 1.18 mg/dL (0.72-1.25)
--- NOTE | 2021-07-23 07:30 | NUR ---
Assessment completed. Pt sitting up in bed with O2 on at 3L/NC. Breath sounds coarse throughout dumas. HOB up at 40 degrees. Telemetry on and HR 41bpm. INT to RAC intact, no redness or edema. Denies c/o pain.
[2021-07-23 07:50] LABS: BAND 9 % (0-10); LYMPHOCYTE 8 % (20.0-51.0); NEUTROPHILS 81 % (42.0-75.2); OVALOCYTES 1+; PLATELET ESTIMATE NORMAL (NORMAL)
--- NOTE | 2021-07-23 08:30 | NUR ---
Pt eats ~50% of breakfast. Respiratory culture panel swab done at this time and pt is placed into Droplet Precautions. No needs at this time. Urinal is provided to pt for accurate I&O's.
--- NOTE | 2021-07-23 09:35 | NUR ---
Pt assessment complete. Pt is sitting up in bed upon entry, he is A/O x4. His breathing is even and unlabored on 3L O2 via NC, reports he is more SOB with any exertion. Reports a dry cough. Denies any pain. Pt has a student nurse caring for him this am. Has no further needs at this time. Call light within reach.
[2021-07-23 09:40] LABS: PATHOLOGY DIFF REVIEW OK
--- NOTE | 2021-07-23 09:56 | NUR ---
Resp. Panel results are negative and pt is taken out of Isolation.
--- NOTE | 2021-07-23 13:19 | NUR ---
First visit from the oil and gas lease pumper. No needs right now.
--- NOTE | 2021-07-23 13:44 | NUR ---
I met with Oswaldo at bedside this afternoon. We have talked before and so he knew who I was and I explained that we were very concerned about him and how he was managing at home. He reports that the [facility] is still not providing his oxygen for him. He reports that the lasix he was on was making him "loopy" and he was falling (x3) so he cut the 40 mg pill in half but that didn't help him much either. he is open to the idea of having help in the home--"but I can't pay for that kind of service and [place] won't help me". I brought up hospice services again and he again politely refused as he reports that you use them when you are going to --I don't think I'm there yet. He adds that he must stay around "to take care of his --she needs me to help her". Oswaldo tells me that he bowls and he enjoys that. "I can't wear my oxygen when I am actually bowling but I put it on as soon as I finish and sit down with it. Oswaldo is able to verbalize that his heart and his lungs are not working well together and that it will likely not get better. "Maybe I should just stop drinking--that might help" Reminded him that that would not be the answer either and that such action could cause further kidney issues. He reports that he has seen his [place] doctor, Dr Maldonado, but doesn't feel that he is doing much for him. On one hand he is very concerned about money and cost of his care but is not open to hospice services who could help him with these things. He reports that he may need Bipap soon--he doesn't like it, but it helps him breathe better. Will continue to follow but pt is again not open to hospice services at this time.
--- NOTE | 2021-07-23 16:08 | NUR ---
psychiatric social worker met with patient to discuss discharge plan. Patient reports that he lives at home with his Tenisha ([phone]). Patient reports that since previous dc he has been independent with his ADL's and had been doing mowing twice a week. Patient reports that he does not use any assistive equipment to assist with ambulation. Patient reports that he has a stationary O2 device that a friend had loaned to him. Patient reports to spending $2300 out of pocket for a portable due to the [place] not covering this. PCP is Dr. Maldonado with the [facility] and he receives most medications from the [facility]. He reports the he will also use [facility] for acute medications. Patient reports that he does have a DPOA-HC on file Discharge plan: will need PT/OT ahmet
--- NOTE | 2021-07-23 19:30 | NUR ---
Pt rested in bed through the day. POC discussed with patient. O2 needs remained the same. Currently on 3L O2 via NC. No pain at this time. Call light within reach.
[2021-07-24] VITALS (218 sets, daily range): BP systolic 88–128; BP diastolic 45–79; PULSE 58–102; TEMP 97.3–97.6; O2SAT 71–98
[2021-07-24 07:01] LABS: MEAN CELL VOLUME 89 fl (80.0-100.0); MEAN CORPUSCULAR HGB CONC 34 g/dl (33.0-37.0); MEAN PLATELET VOLUME 9.5 fl (7.4-10.4); PLATELET COUNT 176 K/mm3 (130-400); RED BLOOD COUNT 3.32 M/mm3 (4.20-5.60); REDCELL DISTRIBUTION WIDTH-CV 13.9 % (11.5-14.5)
[2021-07-24 07:03] LABS: HEMATOCRIT 29.5 % (42.0-52.0); HEMOGLOBIN 9.9 g/dl (13.5-18.0); MEAN CORPUSCULAR HEMOGLOBIN 30 pg (27.0-31.0)
[2021-07-24 07:16] LABS: CALCIUM 9.3 mg/dL (8.4-10.2); CREATININE, serum 1.11 mg/dL (0.72-1.25); POTASSIUM 3.9 mmol/L (3.5-4.5)
[2021-07-24 07:47] LABS: BAND 9 % (0-10); LYMPHOCYTE 1 % (20.0-51.0); NEUTROPHILS 89 % (42.0-75.2); OVALOCYTES 1+; PLATELET ESTIMATE NORMAL (NORMAL)
--- NOTE | 2021-07-24 08:30 | NUR ---
Assessment completed. Pt sitting up in bed, c/o SOA. VS obtained, O2 sats at 90% on 3.5l/nc. Lung sounds coarse with diminished bases. HOB up to 45 degrees with call light in reach. Telemetry on. Apical auscultation irregular rate in 80's. INT to RAC shows no reddness, warmth or edema. Denies any c/o pain but does c/o increased SOA. Pt is A&o x4 and denies any needs at this time.
--- NOTE | 2021-07-24 13:48 | NUR ---
I spoke with patient and his at bedside this afternoon about the possible support cares that I could find that would work with his insurance and be acceptable to him. Palliative home health would be an option through [facility] but would most likely have to be approved by his VA provider. We talked about hospice services through his Medicare and that they could provide his 02 and other medical supplies for his comfort and help him in monitoring his symptoms before they get too bad so he wouldn't have to return to the hospital. He is not wanting frequent visits but was willing to talk with their veterans employment representative about what these services might look like to see if he would find this acceptable. Referral information sent to [facility] for their review and we will plan on Shane from [facility] coming here to talk with him tomorrow. I reasssured pt that this is not a commitment but a time to ask questions and see if he is interested.
[2021-07-24] MEDS ORDERED: SYNTHROID0.05 MG/TA PO (14:23)
--- NOTE | 2021-07-24 15:08 | NUR ---
PT IS COUGHING UP BLOODY PHLEGM, PT'S O2 SATURATIONS ARE AT 80, OXYGEN TURNED UP TO 15L PT REMAINS AT 87%. DR. PACK CALLED, NOW AT BEDSIDE, ORDERED ABG, EKG AND CHEST XRAY AND CT. THE PATIENT DID STATE THAT HE WANTED US TO DO EVERYTHING TO SAVE HIM. BIPAP HAS BEEN ORDERED, AND RESPIRATORY IS AT BEDSIDE. PT WILL BE TRANSFERRED TO ICU.
[2021-07-24 15:32] LABS: ARTERIAL BLD GAS O2 SATURATION 86.5 % (92-100); ARTERIAL BLD GAS TCO2 CT 28.9; ARTERIAL BLOOD GAS BASE EXCESS 4.4 (-2-2); ARTERIAL BLOOD GAS HCO3 27.8 meq/L (22-26); ARTERIAL BLOOD GAS PCO2 37.2 mmHg (35-45); ARTERIAL BLOOD GAS PO2 49.5 mmHg (80-100); ARTERIAL BLOOD GAS pH 7.49 (7.35-7.45)
[2021-07-24 15:39] LABS: HEMOGLOBIN 11.3 g/dl (13.5-18.0); MEAN CELL VOLUME 89 fl (80.0-100.0); MEAN CORPUSCULAR HEMOGLOBIN 30 pg (27.0-31.0); MEAN CORPUSCULAR HGB CONC 34 g/dl (33.0-37.0); MEAN PLATELET VOLUME 9.6 fl (7.4-10.4); PLATELET COUNT 212 K/mm3 (130-400); RED BLOOD COUNT 3.78 M/mm3 (4.20-5.60); REDCELL DISTRIBUTION WIDTH-CV 14.1 % (11.5-14.5)
[2021-07-24 15:41] LABS: HEMATOCRIT 33.7 % (42.0-52.0)
--- NOTE | 2021-07-24 15:55 | NUR ---
Box Puller collaborated with Misty Palliative RN who spoke with patient about palliative home health options. Patient is open to talking with Shane Box Puller at [facility] who will plan to come visit patient tomorrow. CHRISTOPHER contacted Deena at [facility] and gave referral. CHRISTOPHER was notified that patient will transport to ICU. Patient's oxygen needs increased and he was placed on bipap. Misty Palliative RN updated Deena at [facility].
[2021-07-24 15:57] LABS: ALBUMIN 2.8 gm/dL (3.4-4.8); BILIRUBIN,TOTAL 0.5 mg/dL (0.2-1.2); CALCIUM 9.5 mg/dL (8.4-10.2); CREATININE, serum 1.26 mg/dL (0.72-1.25); POTASSIUM 4.5 mmol/L (3.5-4.5); TOTAL PROTEIN 6.5 gm/dL (6.2-8.1)
--- NOTE | 2021-07-24 16:00 | NUR ---
Pt's was at bedside when he experienced a decline in 02 sat, spitting up blood, Bipap was applied and he was taken to CT scan. was supported by this RN. Pt had requested that she take his wallet and keys. She was also given a pocket knife, pen, and inhaler to take home out of his jacket pockets. Son Regan has now arrived and has spoken with Dr Stone. At this time pt states, do what you have to to keep me alive --including tube down the throat. He added that he would like to talk with his family about this more when he can. [facility] notified of change in condition and we will touch base tomorrow about where we go from here.
[2021-07-24 16:03] LABS: TROPONIN-I 0.03 ng/mL (0.00-0.033)
[2021-07-24 16:08] LABS: BAND 6 % (0-10); LYMPHOCYTE 1 % (20.0-51.0); NEUTROPHILS 91 % (42.0-75.2); NUCLEATED RED BLOOD CELL 1 (0-6)
[2021-07-24 16:09] LABS: PLATELET ESTIMATE NORMAL (NORMAL)
--- NOTE | 2021-07-24 16:45 | NUR ---
RECEIVED REPORT FROM MAYUR DANIEL ON MEDICAL. AWAITING ARRIVAL OF PT TO ICU 8.
--- NOTE | 2021-07-24 17:04 | NUR ---
PT'S AND SON BROUGHT TO BEDSIDE. DR TENA AT BEDSIDE DISCUSSING POC, OPTIONS, AND PROGNOSIS. DR PACK BROUGHT TO BEDSIDE AT 1730 TO ENSURE POC IS FULL FILLED. DR TENA STATES TO KEEP PT ON BIPAP, CHANGE ABX, GIVE NOW DOSE OF LASIX, AND HOPEFULLY GET HIM WELL ENOUGH TO GET HIM HOME TO HOSPICE AFTER LONG DISCUSSION WITH PT AND FAMILY. DR TENA STATES IT IS OK TO PLACE PT ON A PRECEDEX GTT TO HELP KEEP HIM COMFORTABLE AT THIS TIME AND WILL GET PALLITIVE CARE MORE INVOLVED TOMORROW.
--- NOTE | 2021-07-24 17:20 | NUR ---
REPORT GIVEN TO MAYUR DIAZ PT TRANSFERRED TO ICU
--- NOTE | 2021-07-24 18:23 | NUR ---
PT ARRIVES TO ICU 8 VIA BED ON BIPAP OF 100% FIO2. PT HELPS SELF SCOOT TO ICU BED AND PLACED ON BEDSIDE CONTINUOUS MONITOR. NOTED POX IN LOW 80s AND RR IN THE 30s. ALL PERSONAL BELONGINGS WITH PT.
--- NOTE | 2021-07-24 19:17 | NUR ---
CALLED PT'S SON TO UPDATE HIM, PT STABLE AT THIS TIME AND HAS SEEMED TO CALM DOWN SOME. RN MONITORING PT'S BP CLOSELY. REPORT GIVEN TO MAYUR PATEL.
[2021-07-25] VITALS (706 sets, daily range): BP systolic 87–103; BP diastolic 52–79; PULSE 71–85; TEMP 96.6–98.6; O2SAT 73–100
[2021-07-25 05:20] LABS: HEMOGLOBIN 10.1 g/dl (13.5-18.0); MEAN CELL VOLUME 92 fl (80.0-100.0); MEAN CORPUSCULAR HEMOGLOBIN 31 pg (27.0-31.0); MEAN CORPUSCULAR HGB CONC 33 g/dl (33.0-37.0); PLATELET COUNT 182 K/mm3 (130-400); RED BLOOD COUNT 3.31 M/mm3 (4.20-5.60); REDCELL DISTRIBUTION WIDTH-CV 14.2 % (11.5-14.5)
[2021-07-25 05:24] LABS: HEMATOCRIT 30.4 % (42.0-52.0)
[2021-07-25 05:36] LABS: CALCIUM 8.9 mg/dL (8.4-10.2); CREATININE, serum 1.1 mg/dL (0.72-1.25); POTASSIUM 4.9 mmol/L (3.5-4.5)
[2021-07-25 05:42] LABS: BAND 24 % (0-10); LYMPHOCYTE 1 % (20.0-51.0); NEUTROPHILS 72 % (42.0-75.2)
[2021-07-25 05:45] LABS: HYPOCHROMIA 1+; PLATELET ESTIMATE NORMAL (NORMAL)
--- NOTE | 2021-07-25 06:52 | NUR ---
PT A/O X4. TOLERATING BIPAP WITH PRECEDEX GTT. ADEQUATE OUTPUT. UPDATED SON, NAE.
--- NOTE | 2021-07-25 07:30 | NUR ---
Report received from MAYUR Handy
--- NOTE | 2021-07-25 08:43 | NUR ---
Patient seen and assessed. He is on bipap at 60% Fi02. He is awake and oriented. He is given short break from bipap for orange juice and to administer medications. He is placed on oxymask during this time. He starts to desaturate after about 3-4 minutes with SP02 in low 80s. Patient is placed back on Bipap at this time.
--- NOTE | 2021-07-25 09:42 | NUR ---
press worker helper attended rounds with the patient, patient's , patient's son Edward, Dr. Zhou and MAYUR Hernandez. Plan the family would like to see happen, is the patient stay here through the weekend to get strong enough to make it home. After the weekend we will reassess the patients condition for the possibility of going home with [facility]. Son Edward is going to corrdinate with his sibilings,who don't live in the area to make it up to see their father. Son Edward is a hand roller, states he needs to fly out of state over the weekend to officiate a friends . MAYUR Hernandez confirms that Shane with [facility] will be here around [phone] to meet with the family. Emotional support provided to the patient and patients .
--- NOTE | 2021-07-25 09:56 | NUR ---
Called to ICU by his nurse, Tere. Family is hoping that pt can be kept in the hospital over the weekend to help him stabilize/maintain/improve to be able to go home Thursday on hospice services. Shane, with [facility], is scheduled to be here around 1415 to talk with family. Tenisha and son Edward were present this morning, talked with Dr Zhou, and both social work specialist and this nurse were also present. This information was relayed to Tere after meeting. Support provided to son and .
--- NOTE | 2021-07-25 14:44 | NUR ---
Patient, son Edward and Tenisha met with Shane, addiction social worker, from [facility]. Family is expressing desire to return to son's home on Thursday for hospice care. Pt is a DNR. His biggest fear is suffocation and he was re-assured that they will have medication for him to use so he does not suffer with that feeling. They are wanting a hospital bed, commode, bedside table, and oxygen for him to use and Shane is aware of this. He answered questions and gave them contact information for any further questions, as they come up.
--- NOTE | 2021-07-25 15:15 | NUR ---
Dr. Pereira meets with the patient, patient's and his son at this time. They agree to try milrinone and lasix gtt's to try to get more fluid off.
--- NOTE | 2021-07-25 18:00 | NUR ---
Have had much trouble getting second IV placed on this patient. Milrinone and Lasix are not compatible and will need to be ran separately.
--- NOTE | 2021-07-25 19:33 | NUR ---
REPORT GIVEN TO MAYUR CEJA
--- NOTE | 2021-07-25 20:00 | NUR ---
Assessment complete and charted. Denies needs. Call light in reach.
[2021-07-25 23:18] LABS: CALCIUM 8.3 mg/dL (8.4-10.2); CREATININE, serum 1.24 mg/dL (0.72-1.25)
[2021-07-26] VITALS (654 sets, daily range): BP systolic 85–101; BP diastolic 51–70; PULSE 72–90; TEMP 97.6–98.7; O2SAT 77–100
--- NOTE | 2021-07-26 06:15 | NUR ---
Patient had uneventful night. Wore bipap most of the night. On oxymask this AM with 11 liters. Denies needs. Call light in reach.
[2021-07-26 06:30] LABS: HEMOGLOBIN 10.3 g/dl (13.5-18.0); MEAN CELL VOLUME 90 fl (80.0-100.0); MEAN CORPUSCULAR HEMOGLOBIN 30 pg (27.0-31.0); MEAN CORPUSCULAR HGB CONC 33 g/dl (33.0-37.0); MEAN PLATELET VOLUME 9.3 fl (7.4-10.4); PLATELET COUNT 192 K/mm3 (130-400); RED BLOOD COUNT 3.45 M/mm3 (4.20-5.60); REDCELL DISTRIBUTION WIDTH-CV 14.1 % (11.5-14.5)
[2021-07-26 06:32] LABS: HEMATOCRIT 30.9 % (42.0-52.0)
[2021-07-26 06:58] LABS: CALCIUM 8.8 mg/dL (8.4-10.2); CREATININE, serum 1.24 mg/dL (0.72-1.25); POTASSIUM 3.6 mmol/L (3.5-4.5)
--- NOTE | 2021-07-26 07:21 | NUR ---
Report given to MAYUR Win
--- NOTE | 2021-07-26 11:45 | NUR ---
Iv with milrinone infusing began leaking. IV removed. Attempted to twice to place a new IV. Hospitalist notified and an order for a picc was given. MAYUR Lazo with IV services notified.
--- NOTE | 2021-07-26 11:55 | NUR ---
Met with patient this morning to talk about his plan. He reports that he is feeling pretty good about plan to try to help him get to his best states and then go home with hospice services so he can be with his family and be comfortable. His son, Regan is in [place] now, and will return on Thursday evening. He is hopeful that some of his other sons will return to see him-- "I'd rather they see me alive". He is still hoping for his condition to improve and that he will have extra time at home. Support provided.
[2021-07-26 17:37] LABS: CALCIUM 8.7 mg/dL (8.4-10.2); CREATININE, serum 1.17 mg/dL (0.72-1.25); POTASSIUM 3.6 mmol/L (3.5-4.5)
[2021-07-27] VITALS (560 sets, daily range): BP systolic 95–114; BP diastolic 56–73; PULSE 71–92; TEMP 97.1–98.3; O2SAT 78–100
[2021-07-27 05:52] LABS: CALCIUM 7.8 mg/dL (8.4-10.2); CREATININE, serum 1.12 mg/dL (0.72-1.25); POTASSIUM 3.5 mmol/L (3.5-4.5)
--- NOTE | 2021-07-27 07:00 | NUR ---
RECEIVED REPORT FROM MAYUR KNIGHT. PT SITTING UP IN BED ON 8L HFNC. VSS. CALL LIGHT WITHIN REACH. SEE GTT FLOWSHEET.
--- NOTE | 2021-07-27 07:20 | NUR ---
Report given to MAYUR Francois
--- NOTE | 2021-07-27 14:22 | NUR ---
CHRISTOPHER update: Patient will DC possible tomorrow. [facility] , Waiting for distillation operator helper to reach out from support to accommadate transistion. CHRISTOPHER printed off the documents to fax for admission. Will follow-up with Hospice.
--- NOTE | 2021-07-27 18:45 | NUR ---
SPOKE TO DECORATING EQUIPMENT SETTER TO CALL [facility]ARM[facility] ABOUT VANC TROUGH LOW AND IF IT NEEDS ADJUSTED OR NOT. AWAITING FOR CALL BACK.
--- NOTE | 2021-07-27 20:57 | NUR ---
Assessment complete and charted. Patient denies needs at this time. Call light in reach.
--- NOTE | 2021-07-27 21:03 | NUR ---
Report given to Davis MERCHANT. Marisol contacted regarding reese. Waiting call back.
--- NOTE | 2021-07-27 21:30 | NUR ---
Amber transferred to [facility].
--- NOTE | 2021-07-27 21:51 | NUR ---
76 yo male on vancomycin therapy for possible infection. Trough drawn appropriately and resulted at 8.31 mcg/ml. Current regimen is vancomycin 1000 mg q24h (half life 15.3 hr); Will change regimen to vancomycin 1000 mg q18h to target a goal trough of 15-20 mcg/ml.
--- NOTE | 2021-07-27 22:00 | NUR ---
Pt. transferred to floor at this time. Pt. able to transfer self to bed. Pt. is A&OX3, assessment complete. Midline to rt. upper arm patent. IV abx running at this time. Pt. denies pain or other needs, call light within reach.
[2021-07-28] VITALS (7 sets, daily range): BP systolic 95–112; BP diastolic 59–71; PULSE 79–88; TEMP 97.2–97.9
--- NOTE | 2021-07-28 16:27 | NUR ---
REPORT GIVEN TO DANIELA MERCHANT AT THIS TIME
--- NOTE | 2021-07-28 19:06 | NUR ---
RECEIVED CHANGE OF SHIFT REPORT FROM DAY SHIFT NURSE. PATIENT WITH NO NEEDS REPORTED DURING REPORT. CALL LIGHT WITHIN REACH.
--- NOTE | 2021-07-28 20:02 | NUR ---
REPORTS HAS SOA WITH EXERTION, DENIES ANY PROBLEMS WITH VOIDING OR PASSING GAS. DENIES ANY DISCOMFORT OR NAUSEA OR NUMBNESST/TINGLING TO EXTREMITIES. MIDLINE IN PLACE.
[2021-07-29 04:40] VITALS: BP 97/68; PULSE 81; TEMP 97.6
--- NOTE | 2021-07-29 07:00 | NUR ---
Report received from MAYUR Bess. PT in bed resting, denies needs, will continue to monitor.
--- NOTE | 2021-07-29 07:12 | NUR ---
CHANGE OF SHIFT REPORT GIVEN TO DAY SHIFT NURSE, ANGELO MERCHANT.
[2021-07-29 08:07] VITALS: BP 104/61; PULSE 71; TEMP 97.4
[2021-07-29] MEDS ORDERED: ANTI-DIARRHEAL2 MG PO (09:09)
[2021-07-29] MEDS ORDERED: TYLENOL 325MG325 MG PO (09:10)
[2021-07-29] MEDS ORDERED: ROXANOL 20MG20 MG/ML PO (09:11)
[2021-07-29] MEDS ORDERED: ATROPINE SULFATE S1% SL (09:13)
[2021-07-29] MEDS ORDERED: REFRESH TEARS 330 ML OP (09:14)
[2021-07-29] MEDS ORDERED: ZOFRAN ODT4 MG PO (09:14)
[2021-07-29] MEDS ORDERED: ATIVAN 1MG T1 MG/TAB PO (09:14)
[2021-07-29] MEDS ORDERED: MELATIN 3 MG-11 TAB PO (09:26)
--- NOTE | 2021-07-29 10:30 | NUR ---
Pt is anxious for discharge home today. Reports that his daughter in law and will pick him up and his son will be home tomorrow. He seems very pleased to be going home and feeling so much better now. He tells me that he will live as long as he can and hopes to surprise everyone. Vandana vázquez provided with explanation.
--- NOTE | 2021-07-29 10:51 | NUR ---
Contacted Jose at [facility] who states that Elena rockwell has all of the supplies ready and set up and they are planning on going to to the house to do the intake Thursday at 11:0o. DC orders faxed to [facility]. Edward contacted to confirm that discharging today is indeed the plan. He states that even though he is still flying in today, his Erna ([phone]) will be picking the patient up along with the patient's and are planning on staying with him. Edward reports that once he's home he is off until Thursday. Erna contacted and is planning on being here for bean picker around 1200. States she needs to run by the patient's house and grab his wheelchair, walker, oxygen and Tenisha. Patient notified. Discharge plan: Son's house with [facility] starting Monday 07/30
--- NOTE | 2021-07-29 11:59 | NUR ---
Assessment charted. PT anticipating discharge today, Midline removed with student nurse and charge nurse. PT sitting in bed, reviewed dsicharge packet, answered all questions, discussed meds sent to pharmacy. Denies needs, pt will leave with all belongings, will be escorted out via w/c [facility] surgical staff. Family to drive home, criteria met.
== END 2021-07-29 12:18 | disposition hospice, home (50) | DRG 193 ==
LOC: COL.ER 16:00 → MEDICAL 18:42 → ICU 18:42 → MEDICAL 23:00 → ICU 07-24 17:02 → SURG 07-27 22:03
PROVIDERS: Family Medicine; Internal Medicine; Physician Assistant; Student in an Organized Health Care Education/Training Program; ADMIT Internal Medicine
PROC: 5A09457 Assistance with Respiratory Ventilation, 24-96 Consecutive Hours, Continuous Positive Airway Pressure (ICD-10-PCS; 2021-07-24)
PROC: 05HY33Z Insertion of Infusion Device into Upper Vein, Percutaneous Approach (ICD-10-PCS; principal; 2021-07-26)
PROC: 5A0935A Assistance with Respiratory Ventilation, Less than 24 Consecutive Hours, High Flow/Velocity Cannula (ICD-10-PCS; 2021-07-26)
DX: J18.9 Pneumonia, unspecified organism (principal); I50.23 Acute on chronic systolic (congestive) heart failure; J96.21 Acute and chronic respiratory failure with hypoxia; J44.1 Chronic obstructive pulmonary disease with (acute) exacerbation; J44.0 Chronic obstructive pulmonary disease with (acute) lower respiratory infection; J47.0 Bronchiectasis with acute lower respiratory infection; E44.0 Moderate protein-calorie malnutrition; R04.2 Hemoptysis; I42.8 Other cardiomyopathies; Z68.1 Body mass index [BMI] 19.9 or less, adult; I48.91 Unspecified atrial fibrillation; Z66 Do not resuscitate; G89.29 Other chronic pain; M54.9 Dorsalgia, unspecified; E78.5 Hyperlipidemia, unspecified; Z85.118 Personal history of other malignant neoplasm of bronchus and lung; Z95.0 Presence of cardiac pacemaker; Z87.891 Personal history of nicotine dependence; Z86.73 Personal history of transient ischemic attack (TIA), and cerebral infarction without residual deficits; Z79.82 Long term (current) use of aspirin; Z51.5 Encounter for palliative care; Z20.822 Contact with and (suspected) exposure to COVID-19
CPT/HCPCS: 99223-AI; 99231-AI; 99232-AI; 99233-AI; 99239; C1751; C1892; J0692; J1644; J1940; J2060; J2260; J2543; J2920; J2930; J3370; J3480; J7050; J7120; Q9967